=== PATIENT | female | born 1970 | race Caucasian/White ===

== ENCOUNTER 2016-11-20 13:54 | Observation (INO) ==
[2016-11-20] MEDS ORDERED: ALUM/MAG/SIMETH/LIDO VISC 1:1 30 ML BOTTLE PO STA (14:22)
[2016-11-20] MEDS ORDERED: HYDROmorphone 2 MG/1 ML VIAL IV STA (14:22)
[2016-11-20] MEDS ORDERED: ONDANSETRON 4 MG/2 ML VIAL IV STA (14:22)
[2016-11-20] MEDS ORDERED: PANTOPRAZOLE 40 MG VIAL IV STA (14:22)
[2016-11-20] MEDS ORDERED: SODIUM CHLORIDE 0.9% 500 ML IV STA (14:22)
--- NOTE | 2016-11-20 14:24 | Emergency Department Note ---
Hakan Izaguirre Meredith, am scribing for, and in the presence of, Carl Sherman MD 14:18. Whit Izaguirre Charles R, MD, personally performed the services described in this documentation, ascribed by Michaela Mcclendon in my presence, and it is both accurate and complete 424 . Arrival - Arrival Chief Complaint: Abdominal / Flank Pain ED Nursing Triage Note: Brought in per EMS from [facility] admissions with c/o generalized abdominal pain onset approx one week ago. +nausea/vomiting. Reports vomited dark red blood with clots today. +decreased appetite. Reports went to [facility] for rehab, last "shot up meth" last night. Mode of Arrival: Stretcher Limitations: No Limitations Source: Patient, Old Records Reviewed, RN Notes Reviewed Time Seen by Provider: 11/20/16 14:12 - History of Present Illness HPI Narrative: Pt is a 46 y/o white female brought to the ED by EMS from [facility] admissions with generalized abdominal pain which onset a week ago. She confirms decreased appetite, nausea, vomiting, and hematemesis. Pt went to [facility] for rehab for alcohol and drug abuse. She last used IV meth yesterday morning. Pt has a history of Hepatitis C. Onset (ago): week(s) Date of Last Menstrual Period: hyst Allergies/Adverse Reactions: Allergies Allergy/AdvReac Type Severity Reaction Status Date / Time Penicillins Allergy Unknown/Unable Verified 11/20/16 14:02 to obtain Sulfa (Sulfonamide Allergy Unknown/Unable Verified 11/20/16 14:02 Antibiotics) to obtain Home Medications: Home Medications Medication Instructions Recorded Confirmed Type No Known Home Medications [No 11/20/16 11/20/16 History Known Home Medications] Review of System - Review of System 12 point system: reviewed and no additional remarkable complaints except as stated - Review of System Gastrointestinal: Present: as per HPI, abdominal pain, nausea, vomiting, hematemesis Medical,Surgical,& Family Hx - Medical History Cardio: History of: Cardiac Dysrhythmia Gastrointestinal: History of: Hepatitis (Hepatitis C) Other: History of: Miscellaneous Medical Problems (substance abuse) - Surgical History Reproductive Surgeries: Surgical HX of;: Hysterectomy Orthopedic Surgeries: Surgical HX of;: Spinal Surgery - Social History Smoking Status: Current every day smoker Frequency of Alcohol Use: Frequently Type of Drug Use: Cocaine, Heroin, Marijuana, Methamphetamine, Intravenous Drug Use Exam Vital Signs: Vital Signs Temperature 99.7 F H 11/20/16 16:59 Pulse Rate 82 11/20/16 16:59 Respiratory Rate 18 11/20/16 16:59 Blood Pressure 139/96 11/20/16 16:59 O2 Sat by Pulse Oximetry 100 11/20/16 16:30 - General General appearance: alert, in no apparent distress - Head Head exam: Present: atraumatic, normocephalic - Eye Eye exam: Present: normal appearance, PERRL, EOMI - ENT ENT exam: Present: mucous membranes dry, normal external ear exam, other ( edentulous) - Neck Neck exam: Present: full ROM, trachea midline. Absent: tenderness, meningismus , lymphadenopathy, thyromegaly - Chest Chest inspection: Present: symmetric chest wall rise. Absent: tenderness, rash - Respiratory Respiratory exam: Present: rhonchi (faint ) - Cardiovascular Cardiovascular exam: Present: regular rate, normal rhythm, normal heart sounds. Absent: murmur, rubs, gallop - Abdominal Exam Abdominal exam: Present: soft, tenderness (epigastric ), normal bowel sounds. Absent: distention - Rectal Exam Rectal exam: Present: heme (+) stool - Extremities Exam Extremities exam: Present: full ROM, normal capillary refill. Absent: tenderness, pedal edema, calf tenderness - Back Exam Back exam: Present: full ROM. Absent: tenderness - Neurological Exam Neurological exam: Present: alert, oriented X3, CN II-XII intact. Absent: motor sensory deficit - Psychiatric Psychiatric exam: Present: normal affect, normal mood - Skin Skin exam: Present: warm, dry, intact, normal color Course - Consultations Consultation #1: Hospitalist will admit patient Time: 17:07 Results - Labs CBC & BMP: 11/20/16 15:37 11/20/16 15:37 Lab Results: I have reviewed the patients labs Labs: Laboratory Tests 11/20/16 11/20/16 14:44 14:44 Urine pH 5.0 Ur Specific [place] 1.029 Urine Urobilinogen < 2.0 H Urine RBC 3 Urine WBC 1 Ur Squamous Epith Cells Occasional Urine Mucus Many Urine Opiates Screen Positive H Ur Barbiturates Screen Negative Ur Phencyclidine Scrn Negative U Amphetamine/Methamph Positive H U Benzodiazepines Scrn Positive H U Cocaine Metab Screen Negative U Cannabinoids Screen Negative Laboratory Tests 11/20/16 15:37 WBC 8.0 RBC 3.99 Hgb 12.2 Hct 36.4 Plt Count 254 Laboratory Tests 11/20/16 15:37 Sodium 144 Potassium 3.8 Chloride 111 H Carbon Dioxide 25 BUN 9 Creatinine 0.60 Calcium 7.9 L Troponin I < 0.015 Albumin/Globulin Ratio 1.0 L Amylase 19 L Serum Alcohol < 15 L - Diagnostic Findings Procedure: Abdominal x-ray: report reviewed by me (No definite acute process. Moderate amount retained stool in the colon. ) Disposition Clinical Impression: Polysubstance abuse, Hepatitis C, Liver cirrhosis, GI bleed, Hematemesis/ vomiting blood, Constipation Case discussed with: patient, patient's family Disposition: Still a Patient Condition: Stable Time of Disposition: 17:08
--- NOTE | 2016-11-20 14:48 | XRay Report ---
History: Abdominal pain. Nausea and vomiting. Decreased appetite. Hematemesis Date: 11/20/2016 Study: Chest x-ray PA and lateral Comparison exam: No previous chest x-ray currently available for comparison The cardiac silhouette is not enlarged. There is no mediastinal mass. The pulmonary vasculature is not engorged. There is no layering pleural effusion. The exam was performed in shallow inspiration with some mild strandy subsegmental atelectasis in either lower lung zone. There is no eneida consolidated pneumonia. There is mild thoracic spondylosis. Impression: Shallow inspiration with mild strandy subsegmental atelectasis in the lung bases. No eneida pneumonia or acute process otherwise PROCEDURE INTERPRETED AT [facility] DEPARTMENT OF RADIOLOGY Final Report Signed by: Dr. Nakia Pacheco
--- NOTE | 2016-11-20 14:54 | XRay Report ---
History: Abdominal pain. Nausea and vomiting. Decreased appetite. Hematemesis Date: 11/20/2016 Study: Flat and erect abdomen Comparison exam: No previous abdominal x-rays available There is no evidence of pneumoperitoneum. There is a moderate amount of residual stool in the normal caliber colon. There is an occasional nonspecific air-fluid level in the large and small bowel on the upright view without eneida obstruction. There is no obvious radiopaque calculus. There is mild lumbar spondylosis. Impression: No definite acute process. Moderate amount retained stool in the colon PROCEDURE INTERPRETED AT [facility] DEPARTMENT OF RADIOLOGY Final Report Signed by: Dr. Nakia Pacheco
[2016-11-20 15:01] LABS: Apearance,Urine Slightly Hazy (Clear); Bilirubin,Urine Negative (Negative); Blood, Urine Negative (Negative); Glucose,Urine (UA) Negative (Negative); Ketones,Urine Negative (Negative); Mucus,Urine Many /LPF (Occasional); Nitrite,Urine Negative (Negative); Protein,Urine Negative; RBC,Urine 3 /HPF (0-4); Squamous Epithelial Cell,Urine Occasional /HPF (0-10); Urine Color Yellow (Yellow); Urine Specific Gravity 1.029 (1.001-1.035); Urine Urobilinogen < 2.0 EU/DL (0.2-1.0); WBC,Urine 1 /HPF (0-6)
[2016-11-20] MEDS ORDERED: PANTOPRAZOLE 40 MG VIAL IV ONE (15:02)
[2016-11-20] MEDS ORDERED: ONDANSETRON 4 MG/2 ML VIAL ONE (15:03)
[2016-11-20] MEDS ORDERED: ALUM/MAG/SIMETH/LIDO VISC 1:1 30 ML BOTTLE PO ONE (15:03)
[2016-11-20] MEDS ORDERED: HYDROmorphone 2 MG/1 ML VIAL ONE (15:03)
--- NOTE | 2016-11-20 15:05 | EKG Report ---
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
[2016-11-20 15:06] LABS: Barbiturates Screen,Urine Negative (Negative); Benzodiazepines Screen,Urine Positive (Negative); Cannabinoid Screen,Urine Negative (Negative); Opiate Screen,Urine Positive (Negative); Phencyclidine Screen,Urine Negative (Negative)
[2016-11-20 16:01] LABS: Basophils % 0.3 % (0.0-0.8); Eosinophils # 0.2 10*3/uL (0.0-0.87); Eosinophils % 2.1 % (0.00-10.9); Hematocrit 36.4 VOL% (35.7-47.0); Hemoglobin 12.2 GM/DL (12.0-16.0); Immature Granulocytes % 0.4 %; Immature Granulocytes Absolute 0.03 #; Lymphocytes # 3.6 10*3/uL (1.4-4.0); Lymphocytes % 45.2 % (21.3-54.2); Mean Corpuscular HGB Conc 33.5 GM/DL (32-36); Mean Corpuscular Hemoglobin 31 PG (27-34); Mean Corpuscular Volume 91.2 FL (87-102); Mean Platelet Volume 9.7 FL (9.6-12.0); Monocytes # 0.5 10*3/uL (0.11-0.8); Monocytes % 5.8 % (1.7-12.7); Neutrophils # 3.7 10*3/uL (1.4-7.4); Neutrophils % 46.2 % (38.7-73.9); Platelet Count 254 T/CUMM (130-400); Red Blood Count 3.99 MC/CUMM (3.8-5.5); Red Cell Distribution Width 12.7 % (9.3-17.3)
[2016-11-20 16:25] LABS: Alanine Aminotransferase 45 U/L (13-56); Albumin 3.4 G/DL (3.4-5.0); Alkaline Phosphatase 84 U/L (45-117); Amylase 19 U/L (25-115); Aspartate Amino Transferase 24 U/L (0-37); Bilirubin,Total < 0.39 MG/DL (0.2-1.0); Blood Urea Nitrogen 9 MG/DL (7-18); Calcium 7.9 MG/DL (8.5-10.1); Glucose 83 MG/DL (74-106); Magnesium 2.2 MG/DL (1.8-2.4); Osmolality,Calculated 283.8 MOS/KG (273-304); Potassium 3.8 MMOL/L (3.5-5.1); Sodium 144 MMOL/L (136-145); Total Protein 6.7 G/DL (6.4-8.3); Troponin I Only < 0.015 NG/ML (0.00-0.045)
--- NOTE | 2016-11-20 19:00 | Hospitalist History & Physical ---
Assessment and Plan (1) GI bleed Status: Acute Assessment and plan: hgb every 6 hours, looks stable, clears, NM bleeding scan, GI consult in am, protonix IV bid Current Visit: Yes (2) Polysubstance abuse Status: Acute Assessment and plan: ativan prn Current Visit: Yes (3) Hepatitis C Status: Acute Assessment and plan: hx of cirrhosis Current Visit: Yes (4) Liver cirrhosis Status: Acute Assessment and plan: ptt, pt Current Visit: Yes (5) Hematemesis/vomiting blood Status: Acute Assessment and plan: consult Dr Beltre Current Visit: Yes (6) Constipation Status: Acute Assessment and plan: mag citrate Current Visit: Yes History of Present Illness Chief complaint: rectal bleeding History of present illness: Ms. Allison is a 46 year old female brought to ER when she presented to [facility] for drug rehab. She has a history of methamphetamine, crack, heroin, with her last meth use being yesterday morning. When she arrived at [facility] she told him that she threw up some blood and was having bright red blood through her rectum. Patient has a history of hepatitis C. we will put her on clear liquids tonight and make her n.p.o. after midnight with GI to see her in the morning Home Medications Medication Instructions Recorded Confirmed Type No Known Home Medications [No 11/20/16 11/20/16 History Known Home Medications] Allergies Allergy/AdvReac Type Severity Reaction Status Date / Time Penicillins Allergy Unknown/Unable Verified 11/20/16 14:02 to obtain Sulfa (Sulfonamide Allergy Unknown/Unable Verified 11/20/16 14:02 Antibiotics) to obtain Medical,Surgical,& Family Hx - Medical History Cardio: History of: Cardiac Dysrhythmia Gastrointestinal: History of: Hepatitis (Hepatitis C) Other: History of: Miscellaneous Medical Problems (substance abuse and insomnia) - Surgical History Reproductive Surgeries: Surgical HX of;: Hysterectomy Orthopedic Surgeries: Surgical HX of;: Spinal Surgery - Family History Family History: Reports;: Family Heart Disease - Social History Smoking Status: Current every day smoker Frequency of Alcohol Use: Frequently Type of Drug Use: Cocaine, Heroin, Marijuana, Methamphetamine, Intravenous Drug Use Marital Status: Single Lives With:: Alone Functional capacity: independent ambulation - Constitutional Constitutional: Absent: fatigue, fever(s), headache(s) - EENT Eyes: Absent: blurry vision, diplopia Ears: Absent: decreased hearing, ear discharge Nose, mouth and throat: Absent: headache(s), sore throat - Cardiovascular Cardiovascular: Absent: chest pain at rest, dyspnea, dyspnea on exertion, edema - Respiratory Respiratory: Absent: dyspnea, dyspnea on exertion - Gastrointestinal Gastrointestinal: Present: diarrhea, hematemesis, hematochezia, nausea, vomiting. Absent: abdominal pain - Genitourinary Genitourinary: Absent: difficulty urinating, dysuria - Musculoskeletal Musculoskeletal: Absent: arthralgias, joint swelling - Neurological Neurological: Absent: headache(s), syncope - Psychiatric Psychiatric: Present: anxiety, depression - Endocrine Endocrine: Absent: cold intolerance, heat intolerance - Hematologic/Lymphatic Hematologic/Lymphatic: Absent: easy bleeding, easy bruising Exam - Constitutional Vitals: Period Temp Pulse Resp BP Sys/Davis Pulse Ox Last 24 Hr 84-86 18-18 111-116/74-77 100-100 General appearance: normal weight, no acute distress - Head Head exam: Present: normal inspection, normocephalic - Eye Eye exam: Present: EOMI. Absent: scleral icterus Pupils: Present: JOSELINE, normal accommodation - ENT ENT exam: Present: normal exam, normal external ear exam - Neck Neck exam: Absent: lymphadenopathy, thyromegaly - Respiratory Respiratory exam: Present: clear to auscultation bilaterally. Absent: rhonchi, wheezes - Cardiovascular Cardiovascular exam: Present: regular rate and rhythm - GI/Abdominal GI/Abdominal exam: Present: normal bowel sounds, soft. Absent: tenderness - Extremities Exam Extremities exam: Present: normal inspection, normal capillary refill - Neurological Exam Neurological exam: Present: alert, oriented X3, CN II-XII intact, motor sensory deficit - Psychiatric Psychiatric exam: Present: agitated, anxious - Skin Skin exam: Present: normal color, warm Results - Labs CBC & BMP: 11/20/16 15:37 11/20/16 15:37 Lab Results: I have reviewed the past 24 hour labs - Diagnostic Findings Procedure: Abdominal x-ray: report reviewed by me (A lot of retained stool), Chest x-ray: report reviewed by me (Atelectasis)
[2016-11-20] MEDS ORDERED: MAGNESIUM CITRATE 300 ML BOTTLE PO ONE (19:06)
[2016-11-20 19:21] LABS: PT Patient Result 10.4 SECS; Partial Thromboplastin Time 28.7 SECS (0-40)
[2016-11-20 22:01] LABS: Hematocrit 38.1 VOL% (35.7-47.0); Hemoglobin 12.5 GM/DL (12.0-16.0)
[2016-11-20 22:16] LABS: PT Patient Result 10.4 SECS; Partial Thromboplastin Time 28.3 SECS (0-40)
[2016-11-20] MEDS: NICOTINE 21 MG/24 HR PATCH TRANSDERM SCH (23:27)
[2016-11-20] MEDS: SODIUM CHLORIDE 0.9% 1,000 ML IV SCH (23:29)
[2016-11-20] MEDS: PANTOPRAZOLE 40 MG VIAL IV SCH (23:39)
[2016-11-21 02:04] LABS: Hematocrit 36.9 VOL% (35.7-47.0)
[2016-11-21] MEDS: LORazepam 1 MG TABLET PO PRN (07:45)
--- NOTE | 2016-11-21 08:50 | Nuclear Medicine Report ---
NM GI bleeding Indication: GI bleed. TAGGED RED CELL BLEEDING SCAN Technique: 25 mCi technetium 99 labeled PYP was injected for in vivo tagging of RBCs. Planar images of the abdomen and pelvis were then obtained. Comparison: None. Findings: No active hemorrhage identified. Impression: No evidence of GI bleed. PROCEDURE INTERPRETED AT [facility] DEPARTMENT OF RADIOLOGY Final Report Signed by: Nael Alvarenga M.D.
[2016-11-21 09:25] LABS: Hematocrit 39.2 VOL% (35.7-47.0); Hemoglobin 12.5 GM/DL (12.0-16.0)
--- NOTE | 2016-11-21 09:43 | Hospitalist Progress Note ---
Assessment and Plan (1) Hematemesis/vomiting blood Status: Acute Assessment and plan: Hematocrit is stable we will repeat the lab , GI eval is pending. Continue Protonix Current Visit: Yes (2) Liver cirrhosis Status: Acute Assessment and plan: Normal bilirubin and liver enzymes on LFTs Current Visit: Yes (3) Polysubstance abuse Status: Acute Assessment and plan: Continue on Ativan when necessary Current Visit: Yes Hospitalist: Subjective Interval history: Ms. Allison is a 46 year old female with history of polysubstance abuse and hepatitis C admitted to [facility] for drug rehabilitation. She reported hemetemesis and hematochezia so sent to the ER for evaluation and admitted. She had a bleeding scan yesterday which was negative for any active hemorrhage. On questioning she has reported some epigastric pain no episodes of vomiting since admission Exam - Constitutional Vitals: Period Temp Pulse Resp BP Sys/Davis Pulse Ox Last 24 Hr 96.4 F-97.4 F 62-86 18-20 105-116/61-80 96-100 General appearance: no acute distress - Respiratory Respiratory exam: Present: clear to auscultation bilaterally. Absent: rales, rhonchi - Cardiovascular Cardiovascular exam: Present: regular rate and rhythm. Absent: tachycardia - GI/Abdominal GI/Abdominal exam: Present: normal bowel sounds, soft. Absent: tenderness - Neurological Exam Neurological exam: Present: alert, oriented X3 Results - Labs CBC & BMP: 11/21/16 08:53 11/20/16 15:37 Lab Results: I have reviewed the past 24 hour labs
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
[2016-11-21] MEDS: DEXTROSE 5% NACL 0.9% 1,000 ML IV SCH ×3 (10:58→13:32)
[2016-11-21] MEDS: NICOTINE 21 MG/24 HR PATCH TRANSDERM SCH (10:59)
[2016-11-21] MEDS: PANTOPRAZOLE 40 MG VIAL IV SCH ×2 (11:00→20:59)
[2016-11-21] MEDS: SODIUM CHLORIDE 0.9% 1,000 ML IV SCH ×2 (11:05→18:24)
[2016-11-21] MEDS ORDERED: ACETAMINOPHEN 325 MG TABLET PO PRN (12:59)
[2016-11-21 13:16] LABS: Hematocrit 37.9 VOL% (35.7-47.0); Hemoglobin 12.3 GM/DL (12.0-16.0)
[2016-11-21] MEDS ORDERED: ONDANSETRON 4 MG/2 ML VIAL IV PRN (14:53)
[2016-11-21] MEDS: DEXTROSE 5% NACL 0.45% 1,000 ML IV SCH (21:40)
[2016-11-22] MEDS: DEXTROSE 5% NACL 0.9% 1,000 ML IV SCH (00:43)
[2016-11-22] MEDS: DEXTROSE 5% NACL 0.45% 1,000 ML IV SCH ×2 (00:45→13:50)
[2016-11-22] MEDS: LORazepam 1 MG TABLET PO PRN ×2 (05:08→11:25)
[2016-11-22 05:09] LABS: Hepatitis B Surface Ag Quant < 0.10 Index; Hepatitis B Surface Ag Result Negative (Negative)
[2016-11-22 05:10] LABS: Hepatitis A Ab IgM Result Negative (Negative); Hepatitis B Core IgM Quant 0.19 Index; Hepatitis B Core IgM Result Negative (Negative)
[2016-11-22 05:11] LABS: Hepatitis C Virus Ab Quant > 11.00 Index; Hepatitis C Virus Ab Result Positive (Negative)
[2016-11-22] MEDS: LORazepam 2 MG/1 ML VIAL IV PRN ×3 (05:20→15:38)
[2016-11-22] MEDS ORDERED: LIDOCAINE 2% 5 ML VIAL ONE (10:21)
[2016-11-22] MEDS ORDERED: PROPOFOL 200 MG/20 ML VIAL IV ONE (10:21)
--- NOTE | 2016-11-22 10:30 | History and Physical Update ---
History and Physical Update - Physical Exam Mental Status: alert and oriented Heart: regular rate and rhythm Lung: clear to auscultation Abdomen: within normal limits Vitals: within normal limits
--- NOTE | 2016-11-22 10:33 | Operative Note ---
Date of procedure: 11/22/16 Pre-op diagnosis: hematemesis Procedure: EGD 46-year-old female multi substance abuser who reportedly has had repeated bouts of vomiting with hematemesis now for upper endoscopy to further evaluate. Informed consent was obtained from patient She was sedated with Mac anesthesia per anesthesia protocol. Patient placed in left lateral decubitus position the Olympus flexible video upper endoscope was inserted oral cavity under direct vision the esophagus intubated. Findings: Esophagus-normal proximal mid esophageal mucosa distal esophagus with small hiatal hernia. No significant esophagitis, esophageal varices or Pedersen's changes were identified. No source of bleeding seen Stomach-normal insufflation normal mucosa to direct retroflex views of the body fundus cardia antral stomach. No blood is present. Pylorus-normal Duodenum-normal from the bulb the duodenum to the third portion of the duodenum. No blood stained mucosa, varicosities or angiodysplasia were identified. The procedure terminated patient our procedure well Postoperative diagnosis: #1 gastroesophageal reflux disease-continue PPI treatment. Avoid nonsteroidals. Antireflux precautions. Avoid alcohol. #2 patient reports recent colonoscopy done at [facility] we're waiting records on this but at this time I do not plan to repeat her colonoscopy unless there is evidence of active bleeding. #3 hepatitis C antibody is positive liver test however are normal. We'll check a hepatitis C PCR to see if she remains infected. MAY her prognosis for liver disease resides more in her illicit drug use cessation than hepatitis C's contribution and I would not recommend from an ETHICAL standpoint treatment of her hepatitis C unless she completes a rehabilitation for substance abuse. Anesthesia: MAC Surgeon / Physician: Victoriano Beltre Estimated blood loss: none Specimens: none sent Condition: stable Disposition: post procedure unit Results - Labs CBC & BMP: 11/21/16 13:08 11/20/16 15:37 Discharge Plan - Discharge Medications No Action No Known Home Medications [No Known Home Medications] - Follow Up or Referral - Forms/Instructions
--- NOTE | 2016-11-22 10:39 | Anesthesia ---
Anesthesia Post OP - Post Ansesthetic Evaluation Patient seen in post op: Yes Resp: within normal limits CV: within normal limits Mental: within normal limits Temp: within normal limits [id number]: within normal limits Nausea and Vomiting: within normal limits Pain: within normal limits
[2016-11-22] MEDS: PANTOPRAZOLE 40 MG VIAL IV SCH ×2 (11:26→20:40)
[2016-11-22] MEDS: NICOTINE 21 MG/24 HR PATCH TRANSDERM SCH (11:26)
--- NOTE | 2016-11-22 12:58 | Hospitalist Progress Note ---
Assessment and Plan (1) Hematemesis/vomiting blood Status: Acute Assessment and plan: Hgb / Hematocrit is stable . No rectal bleeding melena or hematemesis since admission. GI has evaluated negative EGD except GERD continue PPI for colonoscopy per GI will be discharged by [facility] Current Visit: Yes (2) Liver cirrhosis Status: Acute Assessment and plan: Normal bilirubin and liver enzymes on LFTs. See PCR studies ordered by Dr. Beltre. No plan to consider treatment unless it is indicated by Dr. Beltre unless she completed rehabilitation for substance abuse Current Visit: Yes (3) Polysubstance abuse Status: Acute Assessment and plan: Continue on Ativan when necessary plan to transfer to our [facility] as soon as she is accepted Current Visit: Yes Hospitalist: Subjective Interval history: Ms. Allison is a 46 year old female with polysubstance abuse admitted to [facility] for rehabilitation. She mentioned about hematemesis/hematochezia. She has history of hepatitis C. She is well admitted for GI evaluation. She underwent EGD today and found evidence of GERD but no evidence of the GI bleeding. She recently had a colonoscopy at another facility and was told to have a benign polyp. She has been doing fine without any vomiting or rectal bleeding. She is eating and able to tolerate food no abdominal pain. She has some withdrawal symptoms/anxiety and received Ativan and symptoms controlled. GI has no plan to do colonoscopy due to recent scope. Her hemoglobin and hematocrit stable from admission. [facility] being contacted and waiting for evaluation across her back there for rehabilitation Exam - Constitutional Vitals: Period Temp Pulse Resp BP Sys/Davis Pulse Ox Last 24 Hr 97.8 F-98.6 F 71-89 16-20 90-126/56-076 95-100 General appearance: no acute distress - Respiratory Respiratory exam: Present: clear to auscultation bilaterally. Absent: rales, rhonchi - Cardiovascular Cardiovascular exam: Present: regular rate and rhythm. Absent: tachycardia - GI/Abdominal GI/Abdominal exam: Present: normal bowel sounds, soft. Absent: tenderness - Extremities Exam Extremities exam: Present: normal inspection. Absent: edema - Neurological Exam Neurological exam: Present: alert, oriented X3 Results - Labs CBC & BMP: 11/21/16 13:08 11/20/16 15:37 Lab Results: I have reviewed the past 24 hour labs
[2016-11-23] MEDS: DEXTROSE 5% NACL 0.45% 1,000 ML IV SCH (03:07)
[2016-11-23] MEDS: LORazepam 1 MG TABLET PO PRN ×2 (03:07→13:07)
[2016-11-23] MEDS: LORazepam 2 MG/1 ML VIAL IV PRN ×3 (08:24→18:51)
[2016-11-23] MEDS: NICOTINE 21 MG/24 HR PATCH TRANSDERM SCH (08:24)
--- NOTE | 2016-11-23 08:35 | Hospitalist Progress Note ---
Assessment and Plan (1) Polysubstance abuse Status: Chronic Assessment and plan: Hepatitis C, inpatient therapy program Current Visit: Yes (2) Hematemesis/vomiting blood Status: Acute Assessment and plan: Stable hemoglobin and negative EGD Current Visit: Yes Hospitalist: Subjective Interval history: 46 yo female with polysubstance abuse disorder with history of hepatitis C with possible hematemsis, stable hemoglobin and hematocrit with essentially negative EGD. Was initiating drug treatment through [facility] at the time of complaint and return being arranged. Exam - Constitutional Vitals: Period Temp Pulse Resp BP Sys/Davis Pulse Ox Last 24 Hr 97.2 F-98.1 F 67-89 16-20 90-124/58-076 95-100 General appearance: normal weight - Respiratory Respiratory exam: Present: clear to auscultation bilaterally. Absent: rales, rhonchi, wheezes - Cardiovascular Cardiovascular exam: Present: regular rate and rhythm - GI/Abdominal GI/Abdominal exam: Present: normal bowel sounds - Extremities Exam Extremities exam: Absent: edema - Neurological Exam Neurological exam: Present: alert, oriented X3 - Psychiatric Psychiatric exam: Present: anxious, depressed Results - Labs CBC & BMP: 11/21/16 13:08 11/20/16 15:37
[2016-11-23] MEDS: PANTOPRAZOLE 40 MG VIAL IV SCH (08:40)
--- NOTE | 2016-11-23 11:32 | Gastrointestinal Progress Note ---
<ZeeWanda Logan - Last Filed: 11/23/16 11:29> Assessment and Plan (1) Hematemesis/vomiting blood Status: Acute Assessment and plan: 11/23-EGD findings noted. [facility] records received. Hep C PCR pending. Tolerating diet, no pain. For transfer to [facility] pending at present. Plan and addendum to follow by DR Beltre 11/21-Reports one episode on yesterday with dark red clots, melena. Hx of this in past reported. No prior upper endoscopy. Reports recent lower endoscopy at [facility]. Obtain [facility] records regarding this and any workup regarding her Hepatitis C diagnosis. Plan for EGD tomorrow, obtain hepatits panel. Plan and addendum to follow by Dr Beltre Current Visit: Yes Gastroenterology - PN: Subj Interval history: CC: Hemetemesis Pt is awake and alert, lying in bed. States she is feeling some better today. She is tolerating her diet at present time. EGD findings noted. Hep C PCR pending at present. [facility] records were received and noted she had a colonoscopy done in August with only findings of polyp in ascending colon with path of tubular adenoma. No records noted regarding her hepatitis testing. She is to be transferred back to [facility] as soon as this can be arranged. Abdomen is soft, nontender. ROS: Denies SOB or chest pain Exam (Progress Note) - Constitutional Vitals: Period Temp Pulse Resp BP Sys/Davis Pulse Ox Last 24 Hr 97.2 F-98.6 F 67-98 18-20 91-124/58-78 95-99 General appearance: normal weight, no acute distress - Head Head exam: Present: normal inspection, normocephalic - Eye Eye exam: Present: other (lids and conjunctiva unremarkable). Absent: scleral icterus - ENT ENT exam: Present: normal exam, normal oropharynx - Neck Neck exam: Present: normal inspection - Respiratory Respiratory exam: Present: clear to auscultation bilaterally. Absent: rales, rhonchi, wheezes - Cardiovascular Cardiovascular exam: Present: regular rate and rhythm. Absent: diastolic murmur , JVD, systolic murmur - GI/Abdominal GI/Abdominal exam: Present: normal bowel sounds, soft. Absent: ascites, distended, mass, organomegaly, tenderness - Extremities Exam Extremities exam: Present: normal inspection, full ROM - Back Exam Back exam: Present: normal inspection - Neurological Exam Neurological exam: Present: alert, oriented X3 - Psychiatric Psychiatric exam: Present: normal affect, normal mood - Skin Skin exam: Present: normal color, warm, dry Results - Labs CBC & BMP: 11/21/16 13:08 11/20/16 15:37 Lab Results: I have reviewed the past 24 hour labs <Victoriano Beltre - Last Filed: 11/23/16 18:08> Exam (Progress Note) - Constitutional Vitals: Period Temp Pulse Resp BP Sys/Davis Pulse Ox Last 24 Hr 97.2 F-98.9 F 67-98 18-24 91-135/58-80 95-99 Results - Labs CBC & BMP: 11/21/16 13:08 11/20/16 15:37
[2016-11-23 16:51] VITALS: BP 135/80
--- NOTE | 2016-11-23 16:58 | Discharge Summary ---
Hospital Course - Hospital Course Hospital Course: 47 yo female with polysubstance abuse disorder with history of hepatitis C presented with possible hematemesis. Hemoglobin remained stable with essentially negative EGD. At time of presentation the patient was initiating drug therapy through [facility] and has been accepted to return. Diagnosis - Discharge Diagnosis (1) Polysubstance abuse Status: Chronic (2) Hematemesis/vomiting blood Status: Acute Specialty Discharge - Follow Up or Referrals Discharge Plan - Discharge Data Disposition: Disch/Xfer-Ip Rehab Fac Discharge Diet: advance to your usual diet Activity: resume usual activities as tolerated - Discharge Medications No Action No Known Home Medications [No Known Home Medications] - Follow Up or Referral - Forms/Instructions Instructions: Viral Hepatitis C (DC) Exam - Constitutional Vitals: Period Temp Pulse Resp BP Sys/Davis Pulse Ox Last 24 Hr 97.2 F-98.9 F 67-98 18-24 91-135/58-80 95-99 Discharge Results Procedures and tests throughout hospitalization: Pending Orders 11/22/16 10:55 Hepatitis C RNA Detect/Quant Stat Hepatitis C Virus Genotype, S Stat Labs on day of discharge: Labs from last 24 hours 11/23/16 07:15 POC Glucose 108 H DS: Provider Date of admission: 11/20/16 17:23 Primary care physician: . No PCP Attending physician on admission: Zeyad Jones M.D. Consults: 11/20/16 19:52 Consult to Physician [CONS] Routine Comment: rectal bleeding Consulting Provider: Victoriano Beltre Consult to Specialist Group: Gastroenterology Person Notified: [email or web address] Date Notified: 11/21/16 Time Notified: 08:19 11/20/16 20:42 Consult to Pharmacy [CONS] Routine Reason for Pharmacy Consult: Adjust Meds Renal Funct Discharging clinician: Watson Beltrán MD Expected date of discharge: 11/23/16
[2016-11-25 10:07] LABS: Hepatitis C RNA Detect/Quant 163000 IU/mL (Undetected)
== END 2016-11-23 19:08 ==
LOC: EDUNIT# → EDBD → N.EDINP 13:54 → N.ED 13:54 → SUATTDRO 17:23 → N.EDINP 19:33 → N.2E 19:51
PROVIDERS: ADMIT Internal Medicine; ATTEND Internal Medicine Cardiovascular Disease